=== PATIENT | male | born 2000 | race Hispanic/Latino ===

== ENCOUNTER 2019-05-20 19:29 | Emergency (ER) | payer BC ==
--- NOTE | 2019-05-20 20:27 | RAD REPORT ---
EXAM DESCRIPTION: RAD - Chest Pa And Lat (2 Views) - 05/20/2019 8:20 pm CLINICAL HISTORY: CHEST PAIN Chest pain. COMPARISON: No comparisons FINDINGS: The lungs are clear. The heart is normal in size. No displaced fractures. IMPRESSION: No acute or concerning finding suspected.
--- NOTE | 2019-05-20 20:53 | EDPHYS ---
Physician Documentation [facility] Name: Sukumar Graham Age: 18 yrs Sex: Male : 2000 Arrival Date: 05/20/2019 Time: 19:32 Bed 20 Private MD: ED Physician Silvestre Bradley HPI: 05/20 20:01 This 18 yrs old Male presents to ER via Ambulatory with complaints of Chest Pain. kb 20:01 The patient or guardian reports chest pain that is located primarily in the anterior kb chest wall, left. The pain does not radiate. Associated signs and symptoms: The patient has no apparent associated signs or symptoms. The chest pain is described as tightness. Duration: The patient or guardian reports multiple episodes, that are intermittent. Modifying factors: The symptoms are alleviated by nothing. the symptoms are aggravated by nothing. Severity of pain: At its worst the pain was mild moderate in the emergency department the pain has improved. The patient has not experienced similar symptoms in the past. The patient has not recently seen a physician. Pt reports intermittent left chest pain for 3 weeks. States it stays for a few days, then goes away for a few days and repeats. Historical: - Allergies: 19:52 No Known Allergies; jd3 - Home Meds: 19:52 None [Active]; jd3 - PMHx: 19:52 None; jd3 - PSHx: 19:52 None; jd3 - Immunization history:: Adult Immunizations up to date. - Social history:: Smoking status: Patient reports the use of cigarette tobacco products, denies chronic smoking, but will smoke occasionally. ROS: 20:00 Constitutional: Negative for fever, chills, and weight loss, Neck: Negative for injury, kb pain, and swelling, Respiratory: Negative for shortness of breath, cough, wheezing, and pleuritic chest pain, Abdomen/GI: Negative for abdominal pain, nausea, vomiting, diarrhea, and constipation, Back: Negative for injury and pain, MS/Extremity: Negative for injury and deformity, Skin: Negative for injury, rash, and discoloration, Neuro: Negative for headache, weakness, numbness, tingling, and seizure. 20:00 Cardiovascular: Positive for chest pain, of the anterior aspect of left upper chest. Exam: 20:00 Constitutional: This is a well developed, well nourished patient who is awake, alert, kb and in no acute distress. Head/Face: Normocephalic, atraumatic. Neck: Trachea midline, no thyromegaly or masses palpated, and no cervical lymphadenopathy. Supple, full range of motion without nuchal rigidity, or vertebral point tenderness. No Meningismus. Chest/axilla: Normal chest wall appearance and motion. Nontender with no deformity. No lesions are appreciated. Cardiovascular: Regular rate and rhythm with a normal S1 and S2. No gallops, murmurs, or rubs. Normal PMI, no JVD. No pulse deficits. Respiratory: Lungs have equal breath sounds bilaterally, clear to auscultation and percussion. No rales, rhonchi or wheezes noted. No increased work of breathing, no retractions or nasal flaring. Abdomen/GI: Soft, non-tender, with normal bowel sounds. No distension or tympany. No guarding or rebound. No evidence of tenderness throughout. Skin: Warm, dry with normal turgor. Normal color with no rashes, no lesions, and no evidence of cellulitis. MS/ Extremity: Pulses equal, no cyanosis. Neurovascular intact. Full, normal range of motion. Neuro: Awake and alert, GCS 15, oriented to person, place, time, and situation. Cranial nerves II-XII grossly intact. Motor strength 5/5 in all extremities. Sensory grossly intact. Cerebellar exam normal. Normal gait. Vital Signs: 19:51 BP 119 / 85; Pulse 85; Resp 17 S; Temp 98.6(TE); Pulse Ox 99% on R/A; Weight 61.23 kg jd3 (R); Height 5 ft. 7 in. (170.18 cm) (R); Pain 7/10; 21:10 BP 121 / 86; Pulse 81; Resp 17; Temp 98.3; Pulse Ox 100% on R/A; Pain 0/10; rv 19:51 Body Mass Index 21.14 (61.23 kg, 170.18 cm) jd3 MDM: 19:53 Patient medically screened. kb 20:00 Data reviewed: vital signs, nurses notes. Data interpreted: Pulse oximetry: on room air kb is 99 %. Interpretation: normal. 20:52 Counseling: I had a detailed discussion with the patient and/or guardian regarding: the kb historical points, exam findings, and any diagnostic results supporting the discharge/admit diagnosis, radiology results, the need for outpatient follow up, a family practitioner, to return to the emergency department if symptoms worsen or persist or if there are any questions or concerns that arise at home. 05/20 19:54 Order name: Chest Pa And Lat (2 Views) XRAY; Complete Time: 20:33 kb 05/20 19:54 Order name: EKG; Complete Time: 19:54 kb 05/20 19:54 Order name: EKG - Nurse/Tech; Complete Time: 20:36 kb Administered Medications: No medications were administered Disposition: 05/20/19 20:53 Discharged to Home. Impression: Chest pain, unspecified. - Condition is Stable. - Discharge Instructions: Nonspecific Chest Pain, [id number]. - Medication Reconciliation Form, Thank You Letter, Antibiotic Education, Prescription Opioid Use form. - Follow up: Emergency Department; When: As needed; Reason: Worsening of condition. Follow up: Private Physician; When: 2 - 3 days; Reason: Recheck today's complaints, Continuance of care, Re-evaluation by your physician. Addendum: 05/22/2019 02:16 Co-signature as Attending Physician, Silvestre Bradley MD I agree with the assessment and t w4 plan of care. Signatures: Dispatcher [employer] Alyssa Mcclure, CARDIOLOGY ASSOCIATE-C CARDIOLOGY ASSOCIATE-Sergey Kearns, RN RN jd3 Silvestre Bradley MD MD tw4 Umair Queen RN RN rv Corrections: (The following items were deleted from the chart) 05/20 21:12 20:53 05/20/2019 20:53 Discharged to Home. Impression: Chest pain, unspecified. rv Condition is Stable. Forms are Medication Reconciliation Form, Thank You Letter, Antibiotic Education, Prescription Opioid Use. Follow up: Emergency Department; When: As needed; Reason: Worsening of condition. Follow up: Private Physician; When: 2 - 3 days; Reason: Recheck today's complaints, Continuance of care, Re-evaluation by your physician. kb
--- NOTE | 2019-05-20 20:53 | ER ---
Nurse's Notes [facility] Name: Sukumar Graham Age: 18 yrs Sex: Male : 2000 Arrival Date: 05/20/2019 Time: 19:32 Bed 20 Private MD: Diagnosis: Chest pain, unspecified Presentation: 05/20 19:50 Chief complaint: Patient states: "for a couple of weeks I have been having chest pain. jd3 I feel like it has been bubbles passing through.". Coronavirus screen: The patient has NOT traveled to [place] in the past 14 days. The patient has NOT had contact with known and/or suspected case of Coronavirus. Proceed with normal triage procedures. Ebola Screen: Patient negative for fever greater than or equal to 101.5 degrees Fahrenheit, and additional compatible Ebola Virus Disease symptoms. Initial Sepsis Screen: Does the patient meet any 2 criteria? No. Patient's initial sepsis screen is negative. Does the patient have a suspected source of infection? No. Patient's initial sepsis screen is negative. Risk Assessment: Do you want to hurt yourself or someone else? Patient reports no desire to harm self or others. 19:50 Method Of Arrival: Ambulatory jd3 19:50 Acuity: ROB 3 jd3 21:11 Onset of symptoms was May 20, 2019 at 20:00. rv Historical: - Allergies: 19:52 No Known Allergies; jd3 - Home Meds: 19:52 None [Active]; jd3 - PMHx: 19:52 None; jd3 - PSHx: 19:52 None; jd3 - Immunization history:: Adult Immunizations up to date. - Social history:: Smoking status: Patient reports the use of cigarette tobacco products, denies chronic smoking, but will smoke occasionally. Screenin:11 Abuse screen: Denies threats or abuse. Denies injuries from another. Nutritional rv screening: No deficits noted. Tuberculosis screening: No symptoms or risk factors identified. Fall Risk None identified. Assessment: 20:30 General: Appears in no apparent distress. Behavior is calm, cooperative. rv 20:30 Pain: Complains of pain in anterior aspect of left upper chest Pain does not radiate. rv Quality of pain is described as pressure, Pain began suddenly. Neuro: Level of Consciousness is awake, alert, obeys commands, Oriented to person, place, time, situation. Cardiovascular: Patient's skin is warm and dry. Respiratory: Airway is patent Breath sounds are clear bilaterally. Vital Signs: 19:51 BP 119 / 85; Pulse 85; Resp 17 S; Temp 98.6(TE); Pulse Ox 99% on R/A; Weight 61.23 kg jd3 (R); Height 5 ft. 7 in. (170.18 cm) (R); Pain 7/10; 21:10 BP 121 / 86; Pulse 81; Resp 17; Temp 98.3; Pulse Ox 100% on R/A; Pain 0/10; rv 19:51 Body Mass Index 21.14 (61.23 kg, 170.18 cm) jd3 ED Course: 19:32 Patient arrived in ED. cl3 19:51 Triage completed. jd3 19:53 Alyssa Shelton F[facility]-C [facility]. kb 19:53 Silvestre Bradley MD is Attending Physician. kb 19:53 Arm band placed on. jd3 20:18 Chest Pa And Lat (2 Views) XRAY In Process Unspecified. EDMS 20:30 Patient has correct armband on for positive identification. rv 20:36 monitor car operator on. Pulse ox on. NIBP on. rr5 20:36 EKG done, by ED staff, reviewed by Alyssa LOWE. rr5 21:08 Umair Queen, RN is Primary Nurse. rv 21:11 No provider procedures requiring assistance completed. Patient did not have IV access rv during this emergency room visit. Patient maintains SpO2 saturation greater than 95% on room air. Administered Medications: No medications were administered Outcome: 20:53 Discharge ordered by MD. kb 21:12 Discharged to rv 21:12 Discharged to home ambulatory, with family. 21:12 Condition: good 21:12 Discharge instructions given to patient, family, Instructed on discharge instructions, follow up and referral plans. Demonstrated understanding of instructions, follow-up care. 21:12 Patient left the ED. rv Signatures: Dispatcher [employer] EDMS Alyssa Shelton FNP-C FNP-Sergey Kearns RN RN jd3 Umair Queen RN RN rv Adria Oneill RN RN rr5 Raul Cisneros cl3
[2019-05-20 21:27] VITALS: BP 121/86; TEMP 98.3; O2SAT 100
--- NOTE | 2019-05-21 11:00 | EKG ---
Test Date: 2019-05-20 Test Time: 20:32:48 Lift Supervisor: RR MEASUREMENT RESULTS: Intervals: Rate: 75 OH: 172 QRSD: 98 QT: 372 QTc: 415 [place]: P: 64 OH: 172 QRS: 87 T: 71 INTERPRETIVE STATEMENTS: Normal sinus rhythm with sinus arrhythmia Early repolarization Normal ECG No previous ECG available for comparison Electronically Signed On 05-21-19 10:59:46 [facility] by Silvio Palmer
== END 2019-05-20 21:12 | disposition home or self-care (01) ==
LOC: ER 19:29
DX: R07.9 Chest pain, unspecified (principal); F17.210 Nicotine dependence, cigarettes, uncomplicated
CPT/HCPCS: 71046; 93005; 99284